=== PATIENT | male | born 1990 | race Caucasian/White ===

== ENCOUNTER 2017-04-16 19:47 | Emergency (ER) | payer OTHER ==
[~2017-04-16] VITALS: Ht 170.2 cm; Wt 82.6 kg
[2017-04-16 22:23] VITALS: BP 145/87
== END 2017-04-16 22:24 | disposition home or self-care (01) ==
LOC: RME 19:47 → EME 19:47 → RME 22:24
DX: S60.551A Superficial foreign body of right hand, initial encounter (principal); X58.XXXA Exposure to other specified factors, initial encounter
CPT/HCPCS: 99281; 99283